=== PATIENT | male | born 1955 | race Hispanic/Latino ===

== ENCOUNTER 2024-11-05 11:34 | Emergency (ER) | payer SELFPAY ==
[2024-11-05 11:58] VITALS: PULSE 87; RESP 20; TEMP 98.5; O2SAT 97
[2024-11-05] MEDS: KETOROLAC TROMETHAMINE 60 MG/2 ML VIAL IM ONE (12:39)
[2024-11-05 13:29] VITALS: BP 157/74
== END 2024-11-05 13:28 | disposition home or self-care (01) ==
LOC: FSED 11:42
DX: M54.50 Low back pain, unspecified (principal); M41.9 Scoliosis, unspecified; W18.39XA Other fall on same level, initial encounter; Y93.01 Activity, walking, marching and hiking; Y92.89 Other specified places as the place of occurrence of the external cause; I10 Essential (primary) hypertension; E11.9 Type 2 diabetes mellitus without complications; E78.5 Hyperlipidemia, unspecified; I69.354 Hemiplegia and hemiparesis following cerebral infarction affecting left non-dominant side
CPT/HCPCS: 72131; 99284; J1885

== ENCOUNTER 2024-12-20 02:23 | Inpatient (IN) | payer MEDICARE ==
[2024-12-20] VITALS (11 sets, daily range): BP systolic 124–146; BP diastolic 65–74; PULSE 72–81; RESP 16–20; TEMP 97.8–98.4; O2SAT 97–100
[~2024-12-20] VITALS: Ht 162.6 cm; Wt 66.7 kg
[2024-12-20] MEDS ORDERED: DEXTROSE 50% SYRINGE 50 ML IV ONE (02:38)
[2024-12-20] MEDS: DEXTROSE 50% SYRINGE 50 ML IV STA ×3 (02:45→08:49)
[2024-12-20] MEDS: GLUCAGON FOR INJ 1 MG VIAL IV ONE (02:58)
[2024-12-20] MEDS: ONDANSETRON HCL INJ 2MG/ML 2ML 2 MG/ML VIAL IV STA (02:58)
[2024-12-20] MEDS: DEXTROSE 5% 1,000 ML IV SCH (02:58)
[2024-12-20 03:02] LABS: BASOPHILS % 0.4 % (0.0-1.0); EOSINOPHILS % 0.4 % (0.0-6.0); HEMOGLOBIN 11.6 g/dL (14.0-18.0); LYMPHOCYTES # (AUTO) 1.2 (1.0-3.2); LYMPHOCYTES % 14.9 % (18.0-39.1); MEAN CORPUSCULAR HEMOGLOBIN 27.4 pg (28-32); MEAN CORPUSCULAR HGB CONC 31.4 g/dL (31-35); MEAN CORPUSCULAR VOLUME 87.5 fL (81-99); MONOCYTES # (AUTO) 0.6 (0.2-0.8); MONOCYTES % 7.3 % (4.4-11.3); NEUTROPHILS # (AUTO) 6.1 (2.1-6.9); NEUTROPHILS % 76.7 % (38.7-80.0); PLATELET COUNT 340 x10e3/uL (140-360); RED BLOOD COUNT 4.23 x10e6/uL (4.3-5.7); RED CELL DISTRIBUTION WIDTH 13.6 % (11.7-14.4)
[2024-12-20 03:16] LABS: ALBUMIN 4.1 g/dL (3.5-5.0); ALBUMIN/GLOBULIN RATIO 1.1 (0.8-2.0); ANION GAP 18.8 mmol/L (8-16); BILIRUBIN,TOTAL 0.4 mg/dL (0.2-1.2); CALCIUM 9.9 mg/dL (8.4-10.2); CREATININE, SERUM 0.76 mg/dL (0.72-1.25); POTASSIUM 3.8 mmol/L (3.5-5.1)
[2024-12-20] MEDS ORDERED: ONDANSETRON HCL INJ 2MG/ML 2ML 2 MG/ML VIAL IV PRN (04:45)
[2024-12-20] MEDS ORDERED: MUPIROCIN 2% OINT 22 GM TUBE TOP SCH (04:45)
[2024-12-20] MEDS: DEXTROSE 50% SYRINGE 50 ML IV ONE ×3 (06:35→08:49)
[2024-12-20] MEDS: ACETAMINOPHEN 325 MG TAB PO ONE (07:17)
[2024-12-20] MEDS ORDERED: FARXIGA10 MG PO (08:47)
[2024-12-20] MEDS ORDERED: ATORVASTATIN CA40 MG PO (08:47)
[2024-12-20] MEDS ORDERED: CLOPIDOGREL75 MG PO (08:47)
[2024-12-20] MEDS ORDERED: OMEPRAZOLE40 MG PO (08:47)
[2024-12-20] MEDS ORDERED: METFORMIN HCL1000 MG PO (08:47)
[2024-12-20] MEDS ORDERED: FLOMAX0.4 MG PO (08:47)
[2024-12-20] MEDS ORDERED: LISINOPRIL-HCT1 EAC2 PO (08:47)
[2024-12-20] MEDS ORDERED: CITALOPRAM HBR20 MG PO (08:47)
[2024-12-20] MEDS ORDERED: GLIMEPIRIDE4 MG PO (08:47)
[2024-12-20] MEDS ORDERED: IBUPROFEN800 MG PO (08:47)
[2024-12-20] MEDS: DEXTROSE 5% 1,000 ML IV ONE ×2 (08:52→12:22)
[2024-12-20] MEDS ORDERED: DEXTROSE 50% SYRINGE 50 ML IV PRN (09:15)
[2024-12-20] MEDS ORDERED: TEMAZEPAM 15 MG CAP PO PRN (11:15)
[2024-12-20] MEDS ORDERED: HYDRALAZINE HCL 20 MG/ML VIAL IV PRN (11:45)
[2024-12-21] MEDS: DEXTROSE 5% 1,000 ML IV SCH (00:59)
[2024-12-21 05:47] LABS: BASOPHILS % 0.4 % (0.0-1.0); EOSINOPHILS # (AUTO) 0.1 (0.0-0.4); EOSINOPHILS % 1.2 % (0.0-6.0); HEMATOCRIT 38.5 % (38.2-49.6); HEMOGLOBIN 12.3 g/dL (14.0-18.0); LYMPHOCYTES # (AUTO) 1.8 (1.0-3.2); LYMPHOCYTES % 35.2 % (18.0-39.1); MEAN CORPUSCULAR HEMOGLOBIN 27.7 pg (28-32); MEAN CORPUSCULAR HGB CONC 31.9 g/dL (31-35); MEAN CORPUSCULAR VOLUME 86.7 fL (81-99); MONOCYTES # (AUTO) 0.4 (0.2-0.8); MONOCYTES % 7.9 % (4.4-11.3); NEUTROPHILS # (AUTO) 2.9 (2.1-6.9); NEUTROPHILS % 55.1 % (38.7-80.0); PLATELET COUNT 313 x10e3/uL (140-360); RED BLOOD COUNT 4.44 x10e6/uL (4.3-5.7); RED CELL DISTRIBUTION WIDTH 13.7 % (11.7-14.4); WHITE BLOOD COUNT 5.17 x10e3/uL (4.8-10.8)
[2024-12-21 06:19] LABS: ALBUMIN 3.8 g/dL (3.5-5.0); ANION GAP 14.7 mmol/L (8-16); BILIRUBIN,TOTAL 0.5 mg/dL (0.2-1.2); CALCIUM 9.3 mg/dL (8.4-10.2); CREATININE, SERUM 0.64 mg/dL (0.72-1.25); POTASSIUM 3.7 mmol/L (3.5-5.1); TOTAL PROTEIN 7.5 g/dL (6.5-8.1)
[2024-12-21 08:19] VITALS: BP 125/61; PULSE 76; RESP 18; TEMP 98.2; O2SAT 97
[2024-12-21] MEDS: TAMSULOSIN HCL 0.4 MG CAP PO SCH (10:19)
[2024-12-21] MEDS: CLOPIDOGREL BISULFATE 75 MG TAB PO SCH (10:20)
[2024-12-21] MEDS: PANTOPRAZOLE SOD 40 MG TABEC PO SCH (10:20)
[2024-12-21] MEDS: ATORVASTATIN 40 MG TAB PO SCH (10:20)
[2024-12-21] MEDS: SODIUM CHLORIDE FLUSH 10 ML SYR INJ PRN (10:20)
[2024-12-21 11:38] VITALS: BP 128/63; PULSE 89; RESP 18; TEMP 98.5; O2SAT 100
[2024-12-21] MEDS ORDERED: JANUVIA100 MG PO (14:03)
[2024-12-21 15:52] VITALS: BP 147/77; PULSE 91; RESP 18; TEMP 98.3; O2SAT 98
[2024-12-21 16:03] VITALS: BP 147/77; PULSE 91; RESP 18; TEMP 98.3; O2SAT 98
== END 2024-12-21 17:25 | disposition home or self-care (01) | DRG 637 ==
LOC: ER 02:25 → ERHOLD 04:34 → ICU 12:29 → MED/SURG2 20:25
PROVIDERS: ADMIT Internal Medicine; ATTEND Internal Medicine
DX: E11.649 Type 2 diabetes mellitus with hypoglycemia without coma (principal); G93.41 Metabolic encephalopathy; I69.351 Hemiplegia and hemiparesis following cerebral infarction affecting right dominant side; J81.1 Chronic pulmonary edema; T38.3X5A Adverse effect of insulin and oral hypoglycemic [antidiabetic] drugs, initial encounter; Z79.84 Long term (current) use of oral hypoglycemic drugs; S00.03XA Contusion of scalp, initial encounter; W18.39XA Other fall on same level, initial encounter; Y92.009 Unspecified place in unspecified non-institutional (private) residence as the place of occurrence of the external cause; R26.81 Unsteadiness on feet; R29.6 Repeated falls; I10 Essential (primary) hypertension; E78.5 Hyperlipidemia, unspecified; M41.9 Scoliosis, unspecified; Z79.899 Other long term (current) drug therapy; Z79.02 Long term (current) use of antithrombotics/antiplatelets
CPT/HCPCS: 36415; 70450; 71045; 72125; 73522; 80053; 82948; 83880; 84484; 85025; 93005; 94799; 99285; J1610; J2405; J2470; J7070; J7799